=== PATIENT | female | born 2000 | race Caucasian/White ===

== ENCOUNTER 2025-02-04 14:19 | Emergency (ER) | payer OTHER, SELFPAY ==
[2025-02-04 14:26] VITALS: BP 166/112; O2SAT 100
[2025-02-04 14:27] VITALS: BP 166/122; PULSE 103; RESP 18; TEMP 36.6; O2SAT 100
[2025-02-04 14:31] VITALS: BP 151/91; O2SAT 100
[2025-02-04 14:46] VITALS: BP 152/101; O2SAT 99
[2025-02-04] MEDS: KETOROLAC 15 MG/ML VIAL (*BKC) IV PUSH (15:12)
[2025-02-04] MEDS: diazePAM INJ (*CRX) 10 MG/2 ML SYRINGE 5 MG IV PUSH (15:23)
--- NOTE | 2025-02-04 15:23 | PC.NURSE ---
Suction set up in room. Patient placed on 2L NC. AMBUbag set up and placed in room. 15:25 patient given Valium 5mg IV. 15:26 MD in room manipulating jaw. 15:[address] Patient able to speak to MD and nurse.
--- OUTSIDE RECORDS SUMMARY | 2025-02-04 15:25 | XMS_ITS | Clinical Summary ---
Author Organization [employer] [facility] Address [address] [place] [address] Phone Care Team Providers Care Machine Operator Helper Name Role Phone Jose R Lipscomb MD Primary Care Provider [phone] Allergies Active Allergy Reactions Criticality Noted Date Comments Penicillins Unknown 01/31/2014 Mom states family allergy so they avoid it with her Medications * This document contains information received from the source organization and may not represent a complete record from that organization. ketoconazole 2 % shampoo 07/31/2022 Active norgestimate-eth inyl estradioL (TRI-SPRINTEC 28) 0.18/0.215/0.25 mg-35 mcg (28) tablet Take 1 tablet by mouth every day Active Active Problems Problem Noted Date Diagnosed Date Class 1 obesity with serious comorbidity and body mass index (BMI) of 31.0 to 31.9 in adult 08/12/2023 Encounters Date Type Department Care Team Description 01/21/[address] [facility] Internal Medicine [address] [facility] [address] [place] [id number] Jose R Lipscomb MD 01/20/2025 10:30 AM CDT Clinical Support [facility] Internal Medicine [address] [facility] [address] [place] [id number] 01/18/2025 9:15 AM CDT Clinical Support [facility] Internal Medicine [address] [facility] [address] [place] [address] IMM/INJ (TB inj left forearm/Tolerated well) 01/10/[address] [facility] Internal Medicine [address] [facility] [address] [place] [address] Jose R Lipscomb MD Results 01/07/2025 3:45 PM CDT Lab Only [facility] [address] [place] [address] Jose R Lipscomb MD Healthcare maintenance 01/07/2025 11:[address] [facility] Internal Medicine [address] [facility] [address] [place] [address] Jose R Lipscomb MD Healthcare maintenance (Primary Dx); Poor sleep; Attention deficit from Last 3 Months Immunizations Immunization Administration Dates Next Due DTaP-Acellular (Infanrix) 04/02/2007,,02/08/2003,12/07 HEP B/HIB (Comvax) 02/08/2003,2002 Hep B (Recombivax 0.5ml) 04/30/2009,04/02/2007 Hepatitis A - Adult 03/12/2021,09/11/2020 Human Papillomavirus (Gardasil 9) 03/05/2019,11/2018,09/14/2018 INFLUENZA SPLIT VIRUS TRIVAL ENT PF (Fluzone/Flulaval/Fluarix/Afluria PF) 05/07/2024 Influenza (Flu Quad PF) 09/13/2019,09/11/2017 Influenza (Flucelvax - Egg Free/PF) 05/18/2023 Influenza (Fluzone Quad) 09/11/2017 Influenza (Unspecified) 05/18/2023,09/11/2017 Nghnvti-Wmmfb-Rkmlgfk - MMR (Priorix) 04/30/2007 ,04/02/2007 Meningococcal (MENACTRA) 09/13/2019 Meningococcal (MENVEO) 03/09/2017 Pneumonia (PREVNAR 7) 04/11/2003,02/08/2003,11/23 Polio Virus (IPOL) 04/02/2007,02/08/2003, 003 T-dap (BOOSTRIX) 01/06/2024,03/30/2014 TB-PPD 01/18/2025,,03/05/2023,02/24 Varicella (VARIVAX) 04/22/2023,03/19/2023 Family History Medical History Relation Name Comments Hypertension Mother Relation Name Status Comments Brother 1 Alive Brother 2 Alive Father Alive Maternal Grandfather Mother Alive Social History Tobacco Use Types Packs/Day Years Used Date Smoking Tobacco: Never Smokeless Tobacco: Never Tobacco Cessation:Counseling Given: No Alcohol Use Standard Drinks/Week Comments No 0 (1 standard drink = 0.6 oz pur e alcohol) Comments Unknown Sex and Gender Information Value Date Recorded Sex Assigned at Not on file Legal Sex Female 11:01 AM CDT Gender Identity Female 08/14/2023 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 Sexual Orientation Straight 08/14/2023 12 :03 AM CORNER BLOCK CUTTER Last Filed Vital Signs Vital Sign Reading Time Taken Comments Blood Pressure 120/64 01/07/2025 11:00 AM CDT Pulse 85 01/07/2025 11:00 AM CDT Temperature 36.8 C (98.2 F) 01/07/2025 11:00 AM CDT Respiratory Rate 14 01/07/2025 11:00 AM CDT Oxygen Saturation 97% 01/07/2025 11:00 AM CDT Inhaled Oxygen Concentration - - Weight 92.5 kg (204 lb) 01/07/2025 11:00 AM CDT Height 172.7 cm (5' 8) 01/07/2025 11:00 AM CDT Body Mass Index 31.02 01/07/2025 11:00 AM CDT Plan of Treatment Health Maintenance Due Date Last Done Comments Meningococcal B Vaccine (1 of 2 - Standard) 2018 Chlamydia Screening 01/05/2025 01/06/2024 COVID-19 Vaccine ( - season) 2026 Postponed from 04/25/2024 (Patient Refused) Depression Screening 01/07/2026 01/07/2025, 08/12/20 23 Pap Smear 01/05/2027 01/06/2024 DTaP/Tdap/Td Vaccines (7 - Td or Tdap) 01/05/2034 01/06/2024, 03/30/2014, 04/02/2007, Additional history exists HIB Vaccines Aged Out 02/08/2003, 2002 No lo nger eligible based on patient's age to complete this topic Pneumococcal Vaccines Aged Out 04/11/2003 , 02/08/2003, 2002 No longer eligible based on patient's age to complete this topic IPV Vaccines Completed 04/02/2007, 01/23, 2002 MMR Vaccines Completed 04/30/2007, 04/02/2007 Hepatitis B Vaccines Completed 04/30/2009, 04/02/2007, 02/08/2003, Additional history exists HPV Vaccines Completed 03/05/2019, 11/2018, 09/14/2018 Meningococcal Vaccine (ACWY) Completed 09/13/2019, 03/09/2017 Hepatitis A Vaccines Completed 03/12/2021, 09/11/19 Varicella Vaccines Completed 04/22/2023, 03/19/2023 Influenza Vaccine Completed 05/07/2024, , 05/18/2023, Additional history exists Rotavirus Vaccines Aged Out No longer eligible based on patient's age to complete this topic Procedures Procedure Name Priority Date/Time Associated Diagnosis Comments AMB READ TUBERCULOSIS SKIN TEST Routine 01/18/2025 9:29 AM CDT Encounter for PPD skin test reading CBC W/DIFF Routine 01/07/2025 11:25 AM CDT Healthcare maintenance TSH Routine 01/07/2025 11:25 AM CDT Healthcare maintenance COMPREHENSIVE METABOLIC PANEL Routine 01/07/2025 11:25 AM CDT Healthcare maintenance from Last 3 Months Results * AMB READ TUBERCULOSIS SKIN TEST (01/18/2025 9:29 AM CDT) TB Read-Millimeter Induration 0mm mm 01/18/2025 9:29 AM CDT us Jose R RE[facility]OL[facility] GEN OFFICE PROC ORDERABLE S Final Result * (ABNORMAL) CBC W/DIFF (01/07/2025 11:25 AM CDT) WBC 8.86 3.87 - 9.10 10*3/uL [facility] RBC 4.54 3.92 - 4.97 10*6/uL [facility] HGB 13.4 12.1 - 14.8 g/dL [facility] HCT 40.5 37.1 - 45.1 % [facility] MCV 89.2 82.0 - 99.[address] [facility] MCH 29.5 28.5 - 32.[address] [facility] MCHC 33.1 31.4 - 34.5 g/dL [facility] RDW 12.3 11.4 - 14.0 % [facility] PLATELET 259 150 - 400 10*3/uL [facility] MPV 11.0 8.8 - 12.[address] [facility] # NRBC 0.00 0.00 - 0.01 10*3/uL [facility] % NRBC 0.00 /100 WBC [facility] SEG 61.8 % [facility] LYMPHOCYTE 26.3 % [facility] MONOCYTE 9.4 % [facility] EOSINOPHIL 1.1 % [facility] BASOPHIL 0.6 % [facility] IMMATURE GRANULOCYTE 0.8 % [facility] ABSOLUTE NEUTR 5.48 1.57 - 6.01 10*3/uL [facility] ABSOLUTE LYMPH 2.33 0.92 - 2.93 10*3/uL [facility] ABSOLUTE MONO 0.83 0.26 - 0.87 10*3/uL [facility] ABSOLUTE EOS 0.10 0.00 - 0.35 10*3/uL [facility] ABSOLUTE BASO 0.05 0.01 - 0.09 10*3/uL [facility] ABSOLUTE IMMATURE GRANULOCYTE 0.07(H) 0.00 - 0.05 10*3/uL [facility] 01/07/2025 11:2 5 AM CDT 01/07/2025 4:45 PM CDT Jose R Lipscomb MD HEM/CHEM/IMMUN-BLOOD Final Re sult [facility] [address] [place] [id number], * COMPREHENSIVE METABOLIC PANEL (01/07/2025 11:25 AM CDT) CALCIUM 9.6 8.6 - 10.0 mg/dL [facility] GLUCOSE 83 74 - 99 mg/dL [facility] BUN 9 6 - 20 mg/dL [facility] CREATININE 0.69 0.50 - 0.90 mg/dL [facility] TOTAL PROTEIN 7.1 6.6 - 8.7 g/dL [facility] ALBUMIN 4.2 3.5 - 5.2 g/dL [facility] BILIRUBIN, TOTAL 0.4 0.2 - 1.0 mg/dL [facility] AST 17 10 - 35 U/L [facility] ALT 22 10 - 35 U/L [facility] ALKALINE PHOSPHATASE 63 35 - 104 U/L [facility] SODIUM 137 136 - 145 mmol/L [facility] POTASSIUM 4.1 3.5 - 5.1 mmol/L [facility] CHLORIDE 104 98 - 107 mmol/L [facility] CO2 22 22 - 29 mmol/L [facility] ANION GAP 11 7 - 15 mmol/L [facility] OSMOLALITY CALCULATED 282 275 - 295 mmol/L [facility] GFR: CKD-EPI [address] CREAT [address] [facility] Comment: eGFR of 90 or higher is in the normal range eGFR of 60-89 may mean early-stage kidney disease eGFR of 15-59 may mean kidney disease eGFR below 15 may mean kidney failure NOTE: The GFR estimate is reported in ml/min/1.73 square meters. Effective 01/23/23 the reported GFR estimate is calculated using the CKD-EPI 2020 equation and is intended only for the assessment of chronic kidney disease. 01/07/2025 11:2 5 AM CDT 01/07/2025 4:45 PM CDT Jose R Lipscomb MD HEM/CHEM/IMMUN-BLOOD Final Re sult Performing Organization Address [facility] Co de Phone Number [facility] [address] [place] [address], [place] [phone] * TSH (01/07/2025 11:25 AM CDT) TSH 1.140 0.270 - 4.200 u[IU]/mL [facility] Comment: An abnormal TSH result should be followed with a Free T4 test. This TSH is a third generation, high sensitivity test that may be abnormal earlier than changes in Free T4, especially in pre-clinical hyperthyroidism. 01/07/2025 11:2 5 AM CDT 01/07/2025 4:45 PM CDT Jose R Lipscomb MD HEM/CHEM/IMMUN-BLOOD Final Re sult Performing Organization Address [facility] de Phone Number [facility] [address] [place] [address], [place] [phone] from Last 3 Months Insurance [employer] Care Teams Machine Operator Helper Relationship Specialty Start Date End Date Jose R Lipscomb MD PCP - General 09/11/18
--- OUTSIDE RECORDS SUMMARY | 2025-02-04 15:25 | XMS_ITS | Clinical Summary ---
Author Organization [facility] Address [address] [place] [address] Phone Care Team Providers Care Wreath Maker Name Role Phone Sree Ferreira MD Primary Care Provider [phone] Allergies Active Allergy Reactions Criticality Noted Date Comments Penicillins Unknown 01/31/2014 Mom states family allergy so they avoid it with her Medications No known medications Active Problems No known active problems Family History Relation Name Status Comments Father Alive Mother Alive Social History Tobacco Use Types Packs/Day Years Used Date Smoking Tobacco: Never Smokeless Tobacco: Never Alcohol Use Standard Drinks/Week Comments No 0 (1 standard drink = 0.6 oz pur e alcohol) Sexually Active Control Partners Comments Never Comments Unknown Sex and Gender Information Value Date Recorded Sex Assigned at Not on file 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 Gender Identity Not on file Sexual Orientation Not on file Last Filed Vital Signs Vital Sign Reading Time Taken Comments Blood Pressure 100/60 01/31/2014 10:11 AM CDT Pulse 100 01/31/2014 10:11 AM CDT Temperature - - Respiratory Rate - - Oxygen Saturation - - Inhaled Oxygen Concentration - - Weight 44 kg (97 lb) 01/31/2014 10:11 AM CDT Height 157.5 cm (5' 2) 01/31/2014 10:11 AM CDT Body Mass Index 17.74 01/31/2014 10:11 AM CDT Plan of Treatment Health Maintenance Due Date Last Done Comments Hepatitis C Virus (HCV) Screening 2002 TdaP Immunization 2002 Human Papillomavirus (HPV) Immunization (1 - 3-dose series) 2017 Meningococcal B Immunization (1 of 2 - Standard) 2018 Hepatitis B Immunization (1 of 3 - 19+ 3-dose series) 2021 Pap Smear 2023 Influenza Immunization (#1) 2024 SARS-COV-2 Immunization (1 - 2023-25 season) 2024 Respiratory Syncytial Virus (RSV) Immunization (Adult) (1 - 1-dose 75+ series) 2077 Meningococcal Immunization (ACWY) Aged Out No longer eligible based on patient's age to complete this topic Pneumococcal Immunization Combined Aged Out No longer eligible based on patient's age to complete this topic Rotavirus Immunization Aged Out No lo nger eligible based on patient's age to complete this topic [place] [address] [place] [address] [employer] Care Teams Wreath Maker Relationship Specialty Start Date End Date Sree Ferreira MD [address] [place] [address] PCP - General Family Medicine 01/31/14
--- NOTE | 2025-02-04 15:32 | ED.NECK ---
HPI - Neck Pain/Injury General Chief Complaint: Neck Pain/Injury Stated Complaint: Jaw Stuck Open Time Seen by Provider: 02/04/25 14:23 History of Present Illness HPI Narrative: 24-year-old female presenting with jaw dislocation. She states she was yawning and felt like her jaw dislocated. This has happened to her before about 1 years prior and she sees a TMJ specialist and wears a retainer night for this. No surgical interventions previously. She is tolerating her secretions and not any acute distress, she is awake alert oriented but able to close her jaw fully more so on the right side which seems to be the dislocated region. No trauma or injury. No headache or neck pain. No fever chills. Related Data Allergies Allergy/AdvReac Type Severity Reaction Status Date / Time No Known Allergies Allergy Verified 02/04/25 15:19 Review of Systems Review of Systems: As reviewed above in HPI Exam Narrative: GENERAL: [Well-appearing, well-nourished, and in no acute distress.] HEAD: [Normocephalic, atraumatic.] EYES: [PERRLA and EOMI.] ENT: Anterior jaw dislocation on the right side, inability to close the mouth, no pooling of secretions or difficulty swallowing. No anterior lymphadenopathy. No midline neck tenderness. No overlying skin changes or step-offs, deformities or crepitus. NECK: Supple. CHEST: [Clear to auscultation. No respiratory distress.] HEART: [Regular rate and rhythm]. No murmur heard. [Normal peripheral pulses.] ABDOMEN: [Soft, nondistended], [nontender], [No rigidity or guarding] EXTREMITIES: Normal range of motion. [No edema.] SKIN: Warm, dry, no rash. NEURO: [No focal deficits]. Alert and oriented [x3.] PSYCH: [Normal mood and affect.] Course Vital Signs Vital signs: Vital Signs Blood Pressure 166/112 H 02/04/25 14:26 Pulse Oximetry 100 02/04/25 14:26 Temperature 36.6 C 02/04/25 14:27 Pulse Rate 103 H 02/04/25 14:27 Respiratory Rate 18 02/04/25 14:27 Blood Pressure 139/86 02/04/25 15:46 Pulse Oximetry 98 02/04/25 15:46 Oxygen Delivery Room Air 02/04/25 14:27 Procedures Jaw Reduction Reduction #1: Jaw Reduction Date: 02/04/25 Jaw Reduction Time: 15:34 Time Out Performed: Yes Pre-Treatment Medications Used: benzodiazepines Technique used: downward anterior traction Reduction successful: Yes Patient Tolerated Procedure: well and no complications Complications: none MDM - Neck Pain/Injury MDM Narrative Medical decision making narrative: 24-year-old female presenting with nontraumatic jaw dislocation. Anterior jaw dislocation on the right side, inability to close the mouth, no pooling of secretions or difficulty swallowing. No anterior lymphadenopathy. No midline neck tenderness. No overlying skin changes or step-offs, deformities or crepitus. She is otherwise well-appearing not any acute distress. Vital signs are reassuring. Patient given pre treatment with 5 mg of IV Valium in 50 mg of IV Toradol. Jaw with success reduced after several extraoral attempts failed and intraoral technique successful. Patient felt significantly improved and was able to phonate and open and close the jaw without difficulty. Patient given return precautions and follow-up instructions with her TMJ specialist. Patient observed for approximately half an hour to make sure that the medications have worn off and she still remains comfortable. Patient is safe for discharge at this time. Medical Records Attestation: I reviewed the patient's medical records. Discharge Plan Discharge Clinical Impression: Dislocation of jaw, closed Patient Disposition: Home Condition: Stable Instructions: Antibiotic Form, Jaw Dislocation (ED) Additional Instructions: Follow-up with your TMJ specialist, Tylenol and ibuprofen for pain. Return with any recurrence or new worsening concerns. Patient Language: [place] Islander Follow-up/Referrals: UNKNOWN,DOCTOR [Primary Care Provider] - Time of Disposition: 15:40
[2025-02-04 15:46] VITALS: BP 139/86; O2SAT 98
== END 2025-02-04 16:00 | disposition home or self-care (01) ==
PROVIDERS: Emergency Provider Student in an Organized Health Care Education/Training Program
DX: M26.69 Other specified disorders of temporomandibular joint (principal)
CPT/HCPCS: 21480; 96374; 96375; 99285; J1885; J3360